=== PATIENT | female | born 1995 | race Asian ===

== ENCOUNTER 2018-06-08 19:02 | Emergency (ER) | payer BC, SELFPAY ==
[2018-06-08 19:03] VITALS: BP 128/78; PULSE 86; RESP 15; TEMP 36.3; O2SAT 100; BMI 26.3
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
[2018-06-08] MEDS: Ondansetron 4 MG/2 ML Vial IV ×2 (19:29→20:57)
[2018-06-08] MEDS: Morphine 4 MG/ML Syringe IV (19:29)
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
[2018-06-08 20:21] VITALS: BP 142/110; PULSE 84; RESP 13; O2SAT 100
[2018-06-08 20:36] LABS: Absolute Lymphocyte Count 2.27 X10^3/ul (0.83-4.51); Absolute Neutrophil Count 10.5 X10^3/uL (2.0-7.7); Basophil# 0.03 X10^3/uL; Basophil% 0.2 % (0-1); Eosinophil# 0.07 X10^3/uL; Eosinophils% 0.5 % (0-5); Hemoglobin 11.6 g/dl (12.0-15.0); Lymphocyte # 2.27 X10^3/ul (4.0); Lymphocyte % 16.8 % (19-41); Mean Corp Hgb Conc 32.2 g/gl (32-36); Mean Corpuscular Hgb 26.9 pg (27.0-32.0); Mean Corpuscular Volume 83.3 fL (81-99); Mean Platelet Vol. 9.2 fl (6.2-12.0); Monocyte# 0.68 X10^3/uL; Neutrophil # 10.45 X10^3/uL (2.7-7.7); Neutrophil % 77.4 % (47-70); Platelet Count 373 K/mm3 (150-450); RBC Distribution Width CV 13.9 % (11.6-14.6); RBC Distribution Width SD 42.1 fl (35.1-43.9); Red Blood Count 4.32 M/mm3 (4.2-5.4); White Blood Count 13.5 K/mm3 (4.4-11.0)
[2018-06-08 20:38] LABS: Anion Gap 9 (5-15); BUN 10 mg/dL (7-18); BUN/Creat Ratio 16.4 RATIO (10-20); Calcium,Total 7.7 mg/dL (8.5-10.1); Chloride 108 mmol/L (98-107); Creatinine, Serum 0.61 mg/dL (0.55-1.02); EST Glomerular Filtration Rate 133 mL/min (>60); Est Glom Filt Rate - Afr Amer 161 mL/min (>60); Estimated Creatinine Clearance 132.38 ml/min; Glucose 79 mg/dL (74-106); Potassium 3.8 mmol/L (3.5-5.1); Sodium Level 138 mmol/L (136-145)
[2018-06-08 20:40] VITALS: BP 137/89; PULSE 86; RESP 18
[2018-06-08 20:40] LABS: POSITIVE COUNT NO; POSITIVE DIFFERENTIAL NO; POSITIVE MORPHOLOGY NO
[2018-06-08 20:43] LABS: Pregnancy, Serum, hCG Quali. NEGATIVE Negative (0-9 Nonpreg)
--- NOTE | 2018-06-08 20:50 | ED.RN ---
Spoke with Angle in radiology, she will look into results of chest x-ray.
[2018-06-08 21:06] VITALS: BP 131/73; PULSE 87; RESP 15; O2SAT 100
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
--- NOTE | 2018-06-08 21:59 | ED.RN ---
Called report to [facility]. employee stated she would have to clear this through her nursing techn. All discharge instructions given to patient. All questions answered no further concerns.
[2018-06-08 22:00] VITALS: BP 132/70; PULSE 86; RESP 16; O2SAT 100
== END 2018-06-08 22:01 | disposition home or self-care (01) ==
PROVIDERS: Emergency Provider Emergency Medicine
DX: S06.0X9A Concussion with loss of consciousness of unspecified duration, initial encounter (principal); S82.831A Other fracture of upper and lower end of right fibula, initial encounter for closed fracture; S01.01XA Laceration without foreign body of scalp, initial encounter; V03.10XA Pedestrian on foot injured in collision with car, pick-up truck or van in traffic accident, initial encounter; Y93.01 Activity, walking, marching and hiking; Y92.410 Unspecified street and highway as the place of occurrence of the external cause; Y99.8 Other external cause status
CPT/HCPCS: 12002; 70450; 71045; 72125; 73564; 73610; 73630; 80048; 84703; 85025; 96361; 96374; 96375; 96376; 99285; J7030; J7040; A4216; J2405